=== PATIENT | male | born 1985 | race African-American/Black ===

== ENCOUNTER 2022-12-22 13:20 | Emergency (ER) | payer SELFPAY ==
[2022-12-22] MEDS ORDERED: Ondansetron 4 MG/2 ML SDV IVPUSH ONE (13:36)
[2022-12-22] MEDS ORDERED: Sodium Chloride 0.9% 10 ML Syringe FLUSH PRN (13:36)
[2022-12-22] MEDS ORDERED: Sodium Chloride 0.9% 2.5 ML Syringe FLUSH PRN (13:36)
[2022-12-22 13:40] LABS: BASOPHILS PERCENT AUTO 0.4 % (0.0-1.5); EOSINOPHILS ABSOLUTE AUTO 0.3 K/uL (0.0-0.7); HEMOGLOBIN 14.1 g/dL (13.0-17.0); LYMPHOCYTES PERCENT AUTO 42.6 % (16.0-40.0); MEAN CORPUSCULAR HEMOGLOBIN 27.6 pg (27.0-32.0); MEAN CORPUSCULAR HGB CONC 32.8 g/dL (31.0-37.0); MEAN CORPUSCULAR VOLUME 84.1 fL (80.0-98.0); MONOCYTES ABSOLUTE AUTO 0.5 K/uL (0.0-0.8); MONOCYTES PERCENT AUTO 7.2 % (0.0-15.0); NEUTROPHILS ABSOLUTE AUTO 3.2 K/uL (1.4-5.7); NEUTROPHILS PERCENT AUTO 45.8 % (48.0-80.0); PLATELET COUNT,PLT 210 K/uL (150-400); RED BLOOD CELL COUNT 5.11 M/uL (4.50-5.90); WHITE BLOOD CELL COUNT,WBC 6.95 K/uL (4.0-11.0)
[2022-12-22] MEDS: Lactated Ringers 2,000 ML IV ONE ×2 (13:40→14:11)
[2022-12-22 14:01] LABS: A/G RATIO 0.9 (0.9-1.6); ALBUMIN 3.6 g/dL (3.4-5.0); BILIRUBIN TOTAL 0.2 mg/dL (0.2-1.0); CALCIUM 9.4 mg/dL (8.5-10.1); CARBON DIOXIDE,CO2 29.6 mmol/L (21.0-32.0); CREATININE 1.1 mg/dL (0.8-1.3); EST CRCL DRUG DOSING (CG) 85.13 mL/min; MAGNESIUM 1.9 mg/dL (1.8-2.4); POTASSIUM,K 3.9 mmol/L (3.5-5.1); PROTEIN TOTAL,TP 7.6 g/dL (6.4-8.2)
== END 2022-12-22 15:26 | disposition home or self-care (01) ==
LOC: MW.ED 13:20
DX: K52.9 Noninfective gastroenteritis and colitis, unspecified (principal); Z91.041 Radiographic dye allergy status; Z91.013 Allergy to seafood
CPT/HCPCS: 36415; 80053; 83735; 85025; 96361; 96374; 99284; J2405; J3490; J7120

== ENCOUNTER 2023-07-12 10:42 | Emergency (ER) | payer SELFPAY | END 2023-07-12 11:31 | disposition home or self-care (01) | LOC: MW.ED 10:42 | DX: B00.9 Herpesviral infection, unspecified (principal); Z91.041 Radiographic dye allergy status; Z91.013 Allergy to seafood | CPT/HCPCS: 99283 ==

== ENCOUNTER 2023-10-02 07:12 | Emergency (ER) | payer SELFPAY ==
[2023-10-02] MEDS: Sodium Chloride 0.9% 1,000 ML IV ONE (08:11)
[2023-10-02] MEDS: Sodium Chloride 0.9% 2.5 ML Syringe FLUSH PRN (08:12)
[2023-10-02] MEDS: Ketorolac 30 MG/ML SDV IVPUSH ONE (08:12)
[2023-10-02] MEDS: Sodium Chloride 0.9% 10 ML Syringe FLUSH PRN (08:12)
[2023-10-02] MEDS: Ondansetron 4 MG/2 ML SDV IVPUSH ONE (08:12)
[2023-10-02 08:22] LABS: BASOPHILS ABSOLUTE AUTO 0.02 K/uL (0.00-0.20); BASOPHILS PERCENT AUTO 0.3 % (0.0-1.0); EOSINOPHILS ABSOLUTE AUTO 0.14 K/uL (0.00-0.45); HEMATOCRIT 43.4 % (42.0-52.0); HEMOGLOBIN 14.2 g/dL (14.0-18.0); IMMATURE GRAN ABSOLUTE AUTO 0.01 K/uL (0.00-0.05); IMMATURE GRAN PERCENT AUTO 0.1 % (0.0-0.4); LYMPHOCYTES ABSOLUTE AUTO 1.26 K/uL (1.00-4.80); LYMPHOCYTES PERCENT AUTO 18.2 % (24.0-44.0); MEAN CORPUSCULAR HGB CONC 32.7 g/dL (32.0-36.0); MEAN CORPUSCULAR VOLUME 82.5 fL (83.0-99.0); MEAN PLATELET VOLUME 9.9 fL (9.4-12.4); MONOCYTES ABSOLUTE AUTO 0.29 K/uL (0.00-0.80); MONOCYTES PERCENT AUTO 4.2 % (0.0-8.0); NEUTROPHILS ABSOLUTE AUTO 5.19 K/uL (1.80-7.70); NEUTROPHILS PERCENT AUTO 75.2 % (41.0-71.0); PLATELET COUNT,PLT 190 K/uL (150-400); RED BLOOD CELL COUNT 5.26 M/uL (4.52-5.90); WHITE BLOOD CELL COUNT,WBC 6.91 K/uL (3.9-11.3)
[2023-10-02 08:36] LABS: A/G RATIO 0.9 (0.9-1.6); ALBUMIN 3.4 g/dL (3.4-5.0); BILIRUBIN TOTAL 0.5 mg/dL (0.2-1.0); CALCIUM 8.7 mg/dL (8.5-10.1); CARBON DIOXIDE,CO2 25.3 mmol/L (21.0-32.0); CREATININE 1.1 mg/dL (0.8-1.3); EST CRCL DRUG DOSING (CG) 84.29 mL/min; MAGNESIUM 1.8 mg/dL (1.8-2.4); POTASSIUM,K 3.8 mmol/L (3.5-5.1); PROTEIN TOTAL,TP 7.4 g/dL (6.4-8.2)
[2023-10-02] MEDS: Dicyclomine 10 MG Cap PO ONE (08:45)
== END 2023-10-02 09:44 | disposition home or self-care (01) ==
LOC: MW.ED 07:12
DX: R11.2 Nausea with vomiting, unspecified (principal); R19.7 Diarrhea, unspecified; Z91.013 Allergy to seafood; Z91.041 Radiographic dye allergy status
CPT/HCPCS: 36415; 80053; 83690; 83735; 85025; 96361; 96374; 96375; 99284; A9270; J1885; J2405; J3490; J7030

== ENCOUNTER 2024-01-13 09:05 | Emergency (ER) | payer SELFPAY ==
[2024-01-13 10:00] LABS: CORONAVIRUS COVID-19 NAA NEGATIVE (NEGATIVE); INFLUENZA A NAA NEGATIVE (NEGATIVE); INFLUENZA B NAA NEGATIVE (NEGATIVE); RESPIRATORY SYNCYTIAL VIR NAA NEGATIVE (NEGATIVE)
== END 2024-01-13 11:50 | disposition home or self-care (01) ==
LOC: MW.ED 09:05
DX: J02.9 Acute pharyngitis, unspecified (principal); I10 Essential (primary) hypertension; Z79.899 Other long term (current) drug therapy
CPT/HCPCS: 0241U; 87651; 99283